=== PATIENT | female | born 1970 | race African-American/Black ===

== ENCOUNTER 2022-10-05 18:13 | Inpatient (IN) ==
[2022-10-06] MEDS ORDERED: BICILLIN LA 1,200,000 UNIT/2 ML SYRINGE IM STA (02:05)
[2022-10-06 02:44] LABS: Basophils % 0.1 % (0.0-0.8); Hematocrit 41.9 VOL% (35.7-47.0); Hemoglobin 13.8 GM/DL (12.0-16.0); Immature Granulocytes % 0.3 %; Immature Granulocytes Absolute 0.02 #; Lymphocytes # 1.5 10*3/uL (1.4-4.0); Lymphocytes % 18.4 % (21.3-54.2); Mean Corpuscular HGB Conc 32.9 GM/DL (32-36); Mean Corpuscular Volume 74.2 FL (87-102); Mean Platelet Volume 10.9 FL (9.6-12.0); Monocytes # 0.7 10*3/uL (0.11-0.8); Monocytes % 8.1 % (1.7-12.7); Neutrophils % 73.1 % (38.7-73.9); Platelet Count 207 T/CUMM (130-400); Red Blood Count 5.65 MC/CUMM (3.8-5.5); Red Cell Distribution Width 14.6 % (9.3-17.3)
[2022-10-06 03:05] LABS: Lymphocytes 16 % (20-55); Total Cells Counted 100
[2022-10-06 03:06] LABS: Burr Cells Slight; Hypochromia Slight; Ovalocytes Slight
[2022-10-06] MEDS ORDERED: ENOXAPARIN 100 MG/ML SYRINGE SUBCUT STA (03:06)
[2022-10-06 03:07] LABS: Alanine Aminotransferase 25 U/L (13-56); Albumin 4.3 G/DL (3.4-5.0); Alkaline Phosphatase 64 U/L (45-117); Aspartate Amino Transferase 49 U/L (0-37); Bilirubin,Total < 0.39 MG/DL (0.20-1.00); Blood Urea Nitrogen 27 MG/DL (7-18); CKMB % 0.47 %; Carbon Dioxide 27 MMOL/L (21-32); Chloride 98 MMOL/L (98-107); Glucose 108 MG/DL (74-106); Platelet Estimate Normal; Sodium 136 MMOL/L (136-145); Total Protein 8.2 G/DL (6.4-8.2)
[2022-10-06] MEDS ORDERED: ASPIRIN EC 325 MG TABLET PO STA (03:07)
[2022-10-06 03:10] LABS: Potassium 2.5 MMOL/L (3.5-5.1)
[2022-10-06] MEDS ORDERED: POTASSIUM CHLORIDE RIDER 20 MEQ/100 ML PREMIX IV STA (03:11)
[2022-10-06] MEDS ORDERED: SODIUM CHLORIDE 0.9% 1,000 ML IV STA (03:11)
[2022-10-06] MEDS ORDERED: ENOXAPARIN 60 MG/0.6 ML SYRINGE SUBCUT STA (03:14)
[2022-10-06 03:49] LABS: Bacteria,Urine Moderate /HPF (Few); Glucose,Urine (UA) Negative (Negative); Hyaline Casts,Urine 36 /LPF (0-3); Ketones,Urine Trace mg/dL (Negative); Mucus,Urine Many /LPF (Occasional); Nitrite,Urine Negative (Negative); Protein,Urine 100 mg/dL (Negative); RBC,Urine 10 /HPF (0-4); Squamous Epithelial Cell,Urine Occasional /HPF (0-10); Urine Appearance SL CLOUDY (Clear); Urine Color Yellow (Yellow); Urine Specific Gravity >= 1.030 (1.001-1.035); Urine pH 5.5 (4.5-8.0)
[2022-10-06 03:50] LABS: Bilirubin,Urine Moderate mg/dL (Negative); Blood, Urine Negative (Negative); Urine Urobilinogen 0.2 eU/dL (<2.0)
[2022-10-06 03:58] LABS: Barbiturates Screen,Urine Negative (Negative); Benzodiazepines Screen,Urine Negative (Negative); Cannabinoid Screen,Urine Negative (Negative); Opiate Screen,Urine Negative (Negative); Phencyclidine Screen,Urine Negative (Negative)
[2022-10-06] MEDS ORDERED: DOCUSATE SODIUM 100 MG CAPSULE PO PRN (04:01)
[2022-10-06] MEDS ORDERED: ACETAMINOPHEN 325 MG TABLET PO PRN (04:01)
[2022-10-06] MEDS ORDERED: SIMETHICONE CHEW 125 MG TABLET PO PRN (04:01)
[2022-10-06] MEDS ORDERED: ONDANSETRON 4 MG/2 ML VIAL IV PRN (04:01)
[2022-10-06] MEDS: POTASSIUM CHLORIDE RIDER 10 MEQ/100 ML PREMIX IV SCH ×2 (04:05→05:05)
[2022-10-06 04:54] LABS: INR 0.9; PT Patient Result 10.5 SECS (10.1-12.1); Partial Thromboplastin Time 28.2 SECS (23.7-32.9)
[2022-10-06 05:06] LABS: Risk Ratio 3.08; Thyroid Stimulating Hormone 3.71 uIU/ml (0.358-3.74); VLDL Cholesterol 26.2 MG/DL
[2022-10-06] MEDS: SODIUM CHLOR 0.9% KCL 20 MEQ 20 MEQ/1,000 ML BAG IV SCH ×2 (06:40→15:32)
[2022-10-06 06:48] LABS: CKMB % 0.48 %; High Sensitive Troponin I* 1172.7 ng/L (0-54)
[2022-10-06 10:17] LABS: CKMB % 0.46 %
[2022-10-06 10:18] LABS: High Sensitive Troponin I* 1141.1 ng/L (0-54)
[2022-10-06] MEDS ORDERED: POTASSIUM CHLORIDE 20 MEQ TABLET PO ONE (10:58)
[2022-10-06] MEDS: PANTOPRAZOLE 40 MG TABLET PO SCH (11:40)
[2022-10-06] MEDS ORDERED: LOPERAMIDE 2 MG CAPSULE PO PRN (12:59)
[2022-10-06 17:29] LABS: Calcium 7.7 MG/DL (8.5-10.1); Osmolality,Calculated 286.4 MOS/KG (273-304); Potassium 3.2 MMOL/L (3.5-5.1)
[2022-10-07] MEDS: SODIUM CHLOR 0.9% KCL 20 MEQ 20 MEQ/1,000 ML BAG IV SCH ×4 (00:28→18:40)
[2022-10-07 04:57] LABS: Basophils % 0.2 % (0.0-0.8); Eosinophils % 0.3 % (0.00-10.9); Hematocrit 32.6 VOL% (35.7-47.0); Hemoglobin 10.3 GM/DL (12.0-16.0); Immature Granulocytes % 0.3 %; Immature Granulocytes Absolute 0.02 #; Lymphocytes # 1.6 10*3/uL (1.4-4.0); Mean Corpuscular HGB Conc 31.6 GM/DL (32-36); Mean Corpuscular Volume 75.3 FL (87-102); Mean Platelet Volume 11.7 FL (9.6-12.0); Monocytes # 0.5 10*3/uL (0.11-0.8); Monocytes % 7.8 % (1.7-12.7); Neutrophils % 64.4 % (38.7-73.9); Platelet Count 173 T/CUMM (130-400); Red Blood Count 4.33 MC/CUMM (3.8-5.5); Red Cell Distribution Width 14.5 % (9.3-17.3); White Blood Count 5.7 T/CUMM (4-12)
[2022-10-07 05:26] LABS: Alanine Aminotransferase 22 U/L (13-56); Albumin 2.9 G/DL (3.4-5.0); Alkaline Phosphatase 48 U/L (45-117); Aspartate Amino Transferase 37 U/L (0-37); Bilirubin,Total < 0.39 MG/DL (0.20-1.00); Blood Urea Nitrogen 31 MG/DL (7-18); Calcium 7.8 MG/DL (8.5-10.1); Carbon Dioxide 24 MMOL/L (21-32); Chloride 113 MMOL/L (98-107); Glucose 83 MG/DL (74-106); Osmolality,Calculated 293.7 MOS/KG (273-304); Potassium 3.2 MMOL/L (3.5-5.1); Sodium 145 MMOL/L (136-145); Total Protein 6.1 G/DL (6.4-8.2)
[2022-10-07] MEDS ORDERED: POTASSIUM CHLORIDE 20 MEQ TABLET PO ONE (07:34)
[2022-10-07] MEDS: ENOXAPARIN 40 MG/0.4 ML SYRINGE SUBCUT SCH (09:17)
[2022-10-07] MEDS: PANTOPRAZOLE 40 MG TABLET PO SCH (09:17)
[2022-10-07 15:16] LABS: Calcium 7.5 MG/DL (8.5-10.1); Osmolality,Calculated 290.7 MOS/KG (273-304); Potassium 4.1 MMOL/L (3.5-5.1)
[2022-10-08] MEDS: SODIUM CHLOR 0.9% KCL 20 MEQ 20 MEQ/1,000 ML BAG IV SCH (02:45)
[2022-10-08 04:53] LABS: Basophils % 0.2 % (0.0-0.8); Eosinophils # 0.1 10*3/uL (0.0-0.87); Eosinophils % 1.1 % (0.00-10.9); Hemoglobin 9.2 GM/DL (12.0-16.0); Immature Granulocytes % 0.2 %; Immature Granulocytes Absolute 0.01 #; Lymphocytes # 2.2 10*3/uL (1.4-4.0); Lymphocytes % 40.7 % (21.3-54.2); Mean Corpuscular HGB Conc 31.7 GM/DL (32-36); Mean Corpuscular Volume 76.9 FL (87-102); Mean Platelet Volume 11.3 FL (9.6-12.0); Monocytes # 0.5 10*3/uL (0.11-0.8); Neutrophils % 48.8 % (38.7-73.9); Platelet Count 154 T/CUMM (130-400); Red Blood Count 3.77 MC/CUMM (3.8-5.5); Red Cell Distribution Width 14.9 % (9.3-17.3); White Blood Count 5.3 T/CUMM (4-12)
[2022-10-08 05:16] LABS: Calcium 7.7 MG/DL (8.5-10.1); Osmolality,Calculated 288.7 MOS/KG (273-304); Potassium 3.8 MMOL/L (3.5-5.1)
[2022-10-08] MEDS: PANTOPRAZOLE 40 MG TABLET PO SCH (09:19)
[2022-10-08] MEDS: ENOXAPARIN 40 MG/0.4 ML SYRINGE SUBCUT SCH (09:19)
[2022-10-08] MEDS ORDERED: amLODIPine 5 MG TABLET PO SCH (10:45)
[2022-10-08] MEDS: LACTATED RINGERS 1,000 ML IV SCH ×2 (11:10→18:50)
[2022-10-08] MEDS: hydrALAZINE 20 MG/1 ML VIAL IV PRN (21:17)
[2022-10-09] MEDS: LACTATED RINGERS 1,000 ML IV SCH ×2 (03:59→20:09)
[2022-10-09 04:55] LABS: Basophils % 0.5 % (0.0-0.8); Eosinophils # 0.1 10*3/uL (0.0-0.87); Eosinophils % 1.5 % (0.00-10.9); Hematocrit 34.3 VOL% (35.7-47.0); Hemoglobin 10.9 GM/DL (12.0-16.0); Immature Granulocytes % 0.3 %; Immature Granulocytes Absolute 0.02 #; Lymphocytes # 2.8 10*3/uL (1.4-4.0); Mean Corpuscular HGB Conc 31.8 GM/DL (32-36); Mean Corpuscular Volume 76.1 FL (87-102); Mean Platelet Volume 10.8 FL (9.6-12.0); Monocytes # 0.5 10*3/uL (0.11-0.8); Monocytes % 8.2 % (1.7-12.7); Neutrophils % 46.5 % (38.7-73.9); Platelet Count 172 T/CUMM (130-400); Red Blood Count 4.51 MC/CUMM (3.8-5.5); Red Cell Distribution Width 14.5 % (9.3-17.3); White Blood Count 6.6 T/CUMM (4-12)
[2022-10-09] MEDS: hydrALAZINE 20 MG/1 ML VIAL IV PRN (04:55)
[2022-10-09 05:17] LABS: Osmolality,Calculated 272.7 MOS/KG (273-304); Potassium 3.3 MMOL/L (3.5-5.1)
[2022-10-09] MEDS ORDERED: POTASSIUM CHLORIDE 20 MEQ TABLET PO ONE (07:28)
[2022-10-09] MEDS: amLODIPine 5 MG TABLET PO SCH (09:45)
[2022-10-09] MEDS: PANTOPRAZOLE 40 MG TABLET PO SCH (09:45)
[2022-10-09] MEDS: ENOXAPARIN 40 MG/0.4 ML SYRINGE SUBCUT SCH (09:46)
[2022-10-10] MEDS: LACTATED RINGERS 1,000 ML IV SCH (04:45)
[2022-10-10 05:04] LABS: Calcium 8.7 MG/DL (8.5-10.1); Osmolality,Calculated 279.3 MOS/KG (273-304); Potassium 3.2 MMOL/L (3.5-5.1)
[2022-10-10] MEDS ORDERED: POTASSIUM CHLORIDE 20 MEQ TABLET PO ONE (07:18)
[2022-10-10] MEDS: amLODIPine 5 MG TABLET PO SCH (09:58)
[2022-10-10] MEDS: ENOXAPARIN 40 MG/0.4 ML SYRINGE SUBCUT SCH (09:58)
[2022-10-10] MEDS: PANTOPRAZOLE 40 MG TABLET PO SCH (09:58)
[2022-10-10] MEDS ORDERED: POTASSIUM CHLORIDE 20 MEQ TABLET PO PRN (10:00)
[2022-10-11 08:42] LABS: Calcium 8.5 MG/DL (8.5-10.1); Osmolality,Calculated 278.5 MOS/KG (273-304); Potassium 3.6 MMOL/L (3.5-5.1)
[2022-10-11] MEDS: amLODIPine 5 MG TABLET PO SCH (09:22)
[2022-10-11] MEDS: PANTOPRAZOLE 40 MG TABLET PO SCH (09:22)
[2022-10-11] MEDS: ENOXAPARIN 40 MG/0.4 ML SYRINGE SUBCUT SCH (09:23)
[2022-10-12 06:01] LABS: Osmolality,Calculated 277.5 MOS/KG (273-304); Potassium 3.9 MMOL/L (3.5-5.1)
[2022-10-12] MEDS: PANTOPRAZOLE 40 MG TABLET PO SCH (08:16)
[2022-10-12] MEDS: amLODIPine 5 MG TABLET PO SCH (08:17)
[2022-10-12] MEDS: CHOLECALCIFEROL 1,000 UNIT TABLET PO SCH (08:17)
[2022-10-12] MEDS: ENOXAPARIN 40 MG/0.4 ML SYRINGE SUBCUT SCH (08:17)
[2022-10-13] MEDS: PANTOPRAZOLE 40 MG TABLET PO SCH (09:14)
[2022-10-13] MEDS: ENOXAPARIN 40 MG/0.4 ML SYRINGE SUBCUT SCH (09:14)
[2022-10-13] MEDS: amLODIPine 5 MG TABLET PO SCH (09:14)
[2022-10-13] MEDS: CHOLECALCIFEROL 1,000 UNIT TABLET PO SCH (09:14)
[2022-10-14] MEDS: amLODIPine 5 MG TABLET PO SCH (08:58)
[2022-10-14] MEDS: PANTOPRAZOLE 40 MG TABLET PO SCH (08:59)
[2022-10-14] MEDS: CHOLECALCIFEROL 1,000 UNIT TABLET PO SCH (08:59)
[2022-10-14] MEDS: ENOXAPARIN 40 MG/0.4 ML SYRINGE SUBCUT SCH (08:59)
[2022-10-14 13:09] VITALS: BP 117/90
== END 2022-10-14 14:45 | DRG 683 ==
LOC: N.ED 18:13 → N.EDINP 10-06 04:01 → SUATTDRO 10-06 04:01 → N.TELEN 10-06 09:57
PROVIDERS: ADMIT Internal Medicine; ATTEND Internal Medicine